=== PATIENT | male | born 1970 | race Two or more races ===

== ENCOUNTER 2019-05-18 14:09 | Emergency (ER) | payer OTHER ==
[2019-05-18 14:26] VITALS: BP 118/80
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
[2019-05-18] MEDS ORDERED: Rabies VIRUS VACCINE (RabAvert)* 2.5 UNITS VIAL IM ONE (15:03)
[2019-05-18] MEDS ORDERED: Rabies Immune Globulin/PF 1ML* 1 ML/300 UNITS VIAL IM ONE (15:07)
== END 2019-05-18 15:45 | disposition home or self-care (01) ==
LOC: UCEAST 14:09
DX: Z29.14 Encounter for prophylactic rabies immune globulin (principal)
CPT/HCPCS: 90375; 90471; 90675; 96372; 99201; G0463